=== PATIENT | male | born 1990 | race African-American/Black ===

== ENCOUNTER → 2020-10-23 | Emergency (ER) | payer SELFPAY ==
[~2020-10-23] VITALS: Ht 177.8 cm; Wt 72.6 kg
[~2020-10-23] MED LIST: CYCL10TA9 PO; NAPR-1164 PO
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
--- NOTE | 2020-10-23 10:48 | NUR ---
PT SENT TO CT
--- NOTE | 2020-10-23 12:08 | NUR ---
PT. VERBALIZED UNDERSTANDING OF AFTERCARE INSTRUCTIONS.
[2020-10-23 12:09] VITALS: BP 128/70
== END | disposition home or self-care (01) ==
LOC: ER 10:17
DX: S16.1XXA Strain of muscle, fascia and tendon at neck level, initial encounter (principal); V49.69XA Unspecified car occupant injured in collision with other motor vehicles in traffic accident, initial encounter; Y93.89 Activity, other specified; Y92.89 Other specified places as the place of occurrence of the external cause; Y99.8 Other external cause status
CPT/HCPCS: 71111-TC; 72050-TC

== ENCOUNTER 2023-05-26 23:52 | Emergency (ER) | payer OTHER ==
[~2023-05-26] VITALS: Ht 177.8 cm; Wt 72.6 kg
[2023-05-27] MEDS ORDERED: LIDOCAINE/PRILOCAINE (5GM) 5 GM TUBE TP ONE ×2 (00:03)
[2023-05-27 00:04] VITALS: BP 133/81; TEMP 98.4
[2023-05-27] MEDS ORDERED: TDAP [DIPH/PERTUSSIS/TET] 0.5 ML VIAL IM ONE (00:30)
[2023-05-27] MEDS ORDERED: LIDOCAINE HCL/MPF 1% 30 ML VIAL IJ ONE (00:36)
[2023-05-27 02:00] VITALS: O2SAT 98
== END 2023-05-27 03:13 | disposition home or self-care (01) ==
LOC: ER 23:53
DX: S61.214A Laceration without foreign body of right ring finger without damage to nail, initial encounter (principal); W25.XXXA Contact with sharp glass, initial encounter; Y93.89 Activity, other specified; Y92.89 Other specified places as the place of occurrence of the external cause; Y99.8 Other external cause status
CPT/HCPCS: 12002; 90471; 90715; 99283; J3490

== ENCOUNTER 2023-07-05 11:43 | Emergency (ER) | payer BC, OTHER ==
[~2023-07-05] VITALS: Ht 177.8 cm; Wt 72.6 kg
[2023-07-05 12:34] VITALS: BP 97/62; TEMP 98.1; O2SAT 100
== END 2023-07-05 15:20 | disposition home or self-care (01) ==
LOC: ER 11:43
DX: H92.02 Otalgia, left ear (principal)